=== PATIENT | male | born 1955 | race Caucasian/White ===

== ENCOUNTER 2025-05-29 12:00 | Inpatient (IN) | payer MEDICARE, OTHER ==
[~2025-05-29] VITALS: Ht 172.7 cm; Wt 81.6 kg
[2025-05-29] MEDS ORDERED: LORAZEPAM 2 MG/1 ML VIAL ONE ×2 (12:09→13:32)
[2025-05-29] MEDS: LORAZEPAM 2 MG/1 ML VIAL IM ONE ×2 (12:13→13:36)
[2025-05-29] MEDS ORDERED: diphenhydrAMINE 50 MG/1 ML VIAL ONE ×2 (12:35→13:32)
[2025-05-29] MEDS: diphenhydrAMINE 50 MG/1 ML VIAL IVP ONE (12:35)
[2025-05-29] MEDS ORDERED: OLANZAPINE 10 MG VIAL IM ONE (12:36)
[2025-05-29 12:40] LABS: PLATELET COUNT (AUTO) 216 K/uL (152-348); RED BLOOD CELL COUNT(AUTO) 4.36 MIL/uL (4.06-5.63); RED CELL DISTRIBUTION WIDTH 16.1 % (12.1-16.2); WHITE BLOOD COUNT (AUTO) 5.1 K/uL (3.6-10.2)
[2025-05-29] MEDS: OLANZAPINE 10 MG VIAL IM ONE (12:40)
[2025-05-29] MEDS: diphenhydrAMINE 50 MG/1 ML VIAL IM ONE ×3 (12:42→13:36)
[2025-05-29] MEDS ORDERED: ACET-3752 PO (12:45)
[2025-05-29] MEDS ORDERED: EMPA25TA PO (12:45)
[2025-05-29] MEDS ORDERED: METF-440 PO (12:45)
[2025-05-29] MEDS ORDERED: ACET-2030 PO (12:45)
[2025-05-29] MEDS ORDERED: IBUP-1953 PO (12:45)
[2025-05-29] MEDS ORDERED: LEVO200T9 PO (12:45)
[2025-05-29] MEDS ORDERED: INSU100V7 SQ (12:45)
[2025-05-29] MEDS ORDERED: BENZ1TAB PO (12:45)
[2025-05-29] MEDS ORDERED: METO-356 PO (12:45)
[2025-05-29] MEDS ORDERED: ALBU8HFA4 INH (12:45)
[2025-05-29 12:52] LABS: ASPARTATE AMINOTRANSFERASE 12 U/L (15-37); CREATININE 0.7 mg/dL (0.6-1.3); SODIUM SERUM 142 mmol/L (136-145); TOTAL PROTEIN, SERUM 6.5 g/dL (6.4-8.2); UREA NITROGEN, BLOOD 15 mg/dL (7-18)
[2025-05-29 12:58] LABS: ETHANOL < 3 MG/DL (0-10)
[2025-05-29] MEDS: IBUPROFEN 600 MG TABLET PO ONE (13:12)
[2025-05-29] MEDS ORDERED: IBUPROFEN 600 MG TABLET ONE (13:12)
[2025-05-29 13:50] VITALS: BP 154/78
[2025-05-29] MEDS ORDERED: ALBUTEROL-BUDESONIDE IH (14:43)
[2025-05-29] MEDS ORDERED: GABA-532 PO (14:44)
[2025-05-29] MEDS ORDERED: POLY15DR31 EACHEYE (14:47)
[2025-05-29 16:20] VITALS: BP 165/80; TEMP 98.1; O2SAT 98
[2025-05-29] MEDS: ZIPRASIDONE MESYLATE 20 MG VIAL IM ONE (16:26)
[2025-05-29] MEDS ORDERED: HOME MED MISCELLANEOUS INH PRN (16:30)
[2025-05-29] MEDS ORDERED: ACETAMINOPHEN 325 MG TABLET-SA PATIENTS-PAIN ONLY PO PRN (16:30)
[2025-05-29] MEDS ORDERED: ACETAMINOPHEN 325 MG TABLET PO PRN (16:45)
[2025-05-29] MEDS ORDERED: ACETAMINOPHEN ES 500 MG TABLET- SA PATIENTS-PAIN ONLY PO PRN (16:45)
[2025-05-29] MEDS: POLYVINYL ALCOHOL OPHT DROPS 15 ML BOTTLE EACHEYE SCH (17:00)
[2025-05-29] MEDS: INSULIN GLARGINE,HUM 300 UNITS/3 ML CARTRIDGE SQ SCH (17:00)
[2025-05-29] MEDS: BENZTROPINE MESYLATE 1 MG TABLET PO SCH (17:00)
[2025-05-29] MEDS: GABAPENTIN 100 MG CAPSULE PO SCH (17:00)
[2025-05-29] MEDS: METFORMIN HCL 500 MG TABLET PO SCH (18:00)
[2025-05-29] MEDS: METOPROLOL SUCCINATE XL 25 MG TAB.SR.24H PO SCH (18:00)
[2025-05-29 19:48] VITALS: BP 139/70; TEMP 98.2; O2SAT 98
[2025-05-29] MEDS: ACETAMINOPHEN 325 MG TABLET PO PRN (20:10)
[2025-05-29] MEDS ORDERED: ZOLPIDEM 5 MG TABLET PO PRN (20:30)
[2025-05-29] MEDS ORDERED: MAGNESIUM HYDROXIDE 30 ML LIQUID UDC PO PRN (20:30)
[2025-05-29] MEDS ORDERED: MAG HYDROX/AL HYDROX/SIMETH 30 ML LIQUID UDC PO PRN (20:30)
[2025-05-29] MEDS: BLOOD SUGAR DIAGNOSTIC 1 EACH STRIP VI ONE (20:58)
[2025-05-29] MEDS: LORAZEPAM 1 MG TABLET PO PRN (21:10)
[2025-05-30] MEDS: LEVOTHYROXINE SODIUM 200 MCG TABLET PO SCH (06:46)
[2025-05-30] MEDS: ALBUTEROL SULFATE 2.5 MG/ 0.5 ML NEBU NEB PRN (07:00)
[2025-05-30 07:10] VITALS: O2SAT 97
[2025-05-30 07:20] VITALS: O2SAT 99
[2025-05-30] MEDS: ZIPRASIDONE MESYLATE 20 MG VIAL IM ONE (08:01)
[2025-05-30] MEDS: DIVALPROEX SPRINKLE 125 MG CAP.SPRINK PO SCH (08:51)
[2025-05-30 08:57] VITALS: BP 110/45; TEMP 98.2; O2SAT 98
[2025-05-30] MEDS ORDERED: MISCELLANEOUS MED PO SCH (09:00)
[2025-05-30] MEDS: THIORIDAZINE 10 MG TABLET PO SCH (09:00)
[2025-05-30] MEDS: EMPAGLIFLOZIN 25 MG TABLET PO SCH (09:00)
[2025-05-30] MEDS: LORAZEPAM 2 MG/1 ML VIAL IM ONE ×2 (10:01→12:35)
[2025-05-30] MEDS: diphenhydrAMINE 50 MG/1 ML VIAL IM ONE (11:14)
[2025-05-30] MEDS: OLANZAPINE 10 MG VIAL IM ONE (11:14)
[2025-05-30 14:25] VITALS: BP 147/78; TEMP 98.1; O2SAT 95
[2025-05-30] MEDS: chlorproMAZINE 50 MG/2 ML AMPUL IM ONE (14:30)
[2025-05-30] MEDS ORDERED: ACETAMINOPHEN 325 MG TABLET PO PRN (15:15)
[2025-05-31 08:27] VITALS: BP 144/67; TEMP 97.6; O2SAT 98
[2025-05-31] MEDS: THIORIDAZINE 25 MG TABLET PO SCH (09:50)
[2025-05-31 16:53] VITALS: BP 170/71; TEMP 98; O2SAT 96
[2025-05-31 19:52] VITALS: BP 135/75; TEMP 97.9; O2SAT 96
[2025-05-31] MEDS: LORAZEPAM 1 MG TABLET PO PRN (20:18)
[2025-06-01 03:25] VITALS: O2SAT 97
[2025-06-01] MEDS: IBUPROFEN 400 MG TABLET PO PRN (03:31)
[2025-06-01 03:36] VITALS: O2SAT 99
[2025-06-01 03:40] VITALS: O2SAT 99
[2025-06-01 08:19] VITALS: BP 131/69; TEMP 98; O2SAT 99
[2025-06-01] MEDS ORDERED: DOXYCYCLINE HYCLATE 100 MG TABLET PO SCH (13:30)
[2025-06-01] MEDS: DOXYCYCLINE HYCLATE 100 MG TABLET PO SCH (13:41)
[2025-06-01 15:13] VITALS: BP 120/72; TEMP 98; O2SAT 96
[2025-06-01 20:00] VITALS: BP 156/83; O2SAT 96
[2025-06-02] MEDS: ZOLPIDEM 5 MG TABLET PO PRN (03:12)
[2025-06-02] MEDS: ASPIRIN 81 MG TAB.CHEW PO SCH (09:20)
[2025-06-02 09:21] VITALS: BP 141/63; TEMP 98.2; O2SAT 99
[2025-06-02] MEDS ORDERED: risperiDONE-M 0.5 MG TAB.RAPDIS PO SCH (11:30)
[2025-06-02] MEDS: risperiDONE-M 0.5 MG TAB.RAPDIS PO SCH (12:45)
[2025-06-02 15:18] VITALS: BP_SYST 133; BP_SYST 166; BP_DIAS 52; BP_DIAS 72; TEMP 98; O2SAT 99
[2025-06-02 20:23] VITALS: BP 138/71; TEMP 98.2; O2SAT 94
[2025-06-03 08:20] VITALS: BP 163/81; TEMP 98; O2SAT 94
[2025-06-03 15:46] VITALS: BP 116/68; TEMP 98; O2SAT 96
[2025-06-03 20:09] VITALS: BP 168/73; TEMP 98.1; O2SAT 95
[2025-06-04 08:25] VITALS: BP 136/91; TEMP 98; O2SAT 96
[2025-06-04] MEDS: chlorproMAZINE 50 MG/2 ML AMPUL IM PRN (09:48)
[2025-06-04] MEDS: NICOTINE 21 MG/24HR PATCH TD SCH (11:49)
[2025-06-04 16:42] VITALS: BP 124/57; TEMP 98.1; O2SAT 95
[2025-06-04 20:24] VITALS: BP 151/73; TEMP 98; O2SAT 94
[2025-06-04 22:00] VITALS: O2SAT 98
[2025-06-04 22:10] VITALS: O2SAT 99
[2025-06-05 08:49] VITALS: BP 136/71; TEMP 98; O2SAT 96
[2025-06-05] MEDS: PALIPERIDONE PALMITATE 234 MG/1.5 ML SYRINGE IM ONE (09:34)
[2025-06-05 16:42] VITALS: BP 129/66; TEMP 98.1; O2SAT 95
[2025-06-05 20:08] VITALS: BP 140/71; TEMP 97.9; O2SAT 93
[2025-06-06 08:52] VITALS: BP 133/58; TEMP 98; O2SAT 96
[2025-06-06] MEDS ORDERED: DEXTROSE 50% 50 ML DISP.SYRIN IV PRN (11:15)
[2025-06-06] MEDS ORDERED: INSULIN REGULAR, HUMAN 1000 UNIT/10 ML VIAL SQ PRN (11:15)
[2025-06-06] MEDS: BLOOD SUGAR DIAGNOSTIC 1 EACH STRIP VI SCH (11:30)
[2025-06-06 16:38] VITALS: BP 111/67; TEMP 98.1; O2SAT 95
[2025-06-06 20:12] VITALS: BP 126/66; TEMP 98.1; O2SAT 95
[2025-06-07] MEDS: CLOTRIMAZOLE 1% CREAM 30 GM TUBE TOP SCH (09:00)
[2025-06-07] MEDS: chlorproMAZINE 50 MG/2 ML AMPUL IM ONE (09:19)
[2025-06-07] MEDS: chlorproMAZINE 50 MG/2 ML AMPUL IM PRN (10:36)
[2025-06-08 09:40] VITALS: BP 151/70; TEMP 98.2; O2SAT 92
[2025-06-08 15:17] VITALS: BP 133/56; TEMP 98.2; O2SAT 98
[2025-06-08 20:28] VITALS: BP 138/70; TEMP 98; O2SAT 96
[2025-06-09 07:39] VITALS: BP 117/54; TEMP 98.2; O2SAT 96
[2025-06-09] MEDS: chlorproMAZINE 50 MG/2 ML AMPUL IM ONE (08:24)
[2025-06-09] MEDS: chlorproMAZINE 50 MG/2 ML AMPUL IM PRN (12:46)
[2025-06-09 15:44] VITALS: BP 136/57; TEMP 98; O2SAT 98
[2025-06-10 09:36] VITALS: BP 111/47; TEMP 98.2; O2SAT 98
[2025-06-10 15:17] VITALS: BP 138/68; TEMP 98; O2SAT 99
[2025-06-10 20:09] VITALS: BP 151/68; TEMP 98.3; O2SAT 95
[2025-06-11 08:48] VITALS: BP 149/70; TEMP 98.2; O2SAT 98
[2025-06-11 16:32] VITALS: BP 139/70; TEMP 98.2; O2SAT 98
[2025-06-11 20:09] VITALS: BP 140/70; TEMP 97.8; O2SAT 93
[2025-06-12 08:52] VITALS: BP 183/87; TEMP 98.2; O2SAT 98
[2025-06-12] MEDS: chlorproMAZINE 50 MG/2 ML AMPUL IM PRN (09:59)
[2025-06-12 16:20] VITALS: BP 161/81; TEMP 98.2; O2SAT 98
[2025-06-12 20:21] VITALS: BP 139/65; TEMP 97.9; O2SAT 97
[2025-06-13 08:43] VITALS: BP 133/69; TEMP 98.2; O2SAT 98
[2025-06-13] MEDS: PALIPERIDONE PALMITATE 156 MG/ML SYRINGE IM SCH (16:17)
[2025-06-13 16:55] VITALS: BP 142/59; TEMP 98.2; O2SAT 98
[2025-06-13 22:37] VITALS: BP 146/67; TEMP 98; O2SAT 96
[2025-06-14 09:40] VITALS: BP 98/62; TEMP 97.5; O2SAT 97
== END 2025-06-14 15:45 | disposition home or self-care (01) | DRG 885 ==
LOC: ER 12:00 → GPS 14:10
PROVIDERS: ADMIT Psychiatry & Neurology Psychiatry; ATTEND Student in an Organized Health Care Education/Training Program
PROC: 0HBRXZZ Excision of Toe Nail, External Approach (ICD-10-PCS; principal; 2025-06-06)
DX: F29 Unspecified psychosis not due to a substance or known physiological condition (principal); E11.65 Type 2 diabetes mellitus with hyperglycemia; E44.1 Mild protein-calorie malnutrition; L03.116 Cellulitis of left lower limb; R45.6 Violent behavior; E11.51 Type 2 diabetes mellitus with diabetic peripheral angiopathy without gangrene; B35.3 Tinea pedis; E03.9 Hypothyroidism, unspecified; F20.9 Schizophrenia, unspecified; E66.9 Obesity, unspecified; I10 Essential (primary) hypertension; Z78.1 Physical restraint status; L60.2 Onychogryphosis; Z79.84 Long term (current) use of oral hypoglycemic drugs; Z88.0 Allergy status to penicillin; Z79.890 Hormone replacement therapy; R60.0 Localized edema; Z91.199 Patient's noncompliance with other medical treatment and regimen due to unspecified reason; Z79.899 Other long term (current) drug therapy; Z68.27 Body mass index [BMI] 27.0-27.9, adult; Z87.891 Personal history of nicotine dependence
CPT/HCPCS: 36415; 85025; 93005; 94640; 94760; A4606; A4663; G0480; J1200; J1815; J2060; J2358; J2426; J3230; J3486; J8499; Q0161